=== PATIENT | female | born 1985 | race Caucasian/White ===

== ENCOUNTER → 2020-05-24 | Outpatient (CLI) | payer OTHER ==
[~2020-05-24] MED LIST: COVID-19 VACC, MRNA(MODERNA)/PF 100 MCG/0.5 ML VIAL IM ONE
== END ==
LOC: VACCPMC 13:40
DX: Z23 Encounter for immunization (principal); Z20.828 Contact with and (suspected) exposure to other viral communicable diseases

== ENCOUNTER → 2020-06-28 | Outpatient (CLI) | payer OTHER | END | DRG 951 | LOC: VACCPMC 08:24 | DX: Z23 Encounter for immunization (principal); Z20.822 Contact with and (suspected) exposure to COVID-19 | CPT/HCPCS: 0012A; 91301 ==

== ENCOUNTER 2024-01-24 14:00 | Outpatient (RCR) | payer BC | END 2024-01-25 | LOC: PT 14:00 | PROVIDERS: ATTEND Orthopaedic Surgery | DX: M54.40 Lumbago with sciatica, unspecified side (principal); M47.812 Spondylosis without myelopathy or radiculopathy, cervical region ==

== ENCOUNTER 2024-02-04 14:00 | Outpatient (RCR) | payer BC | END 2024-02-24 | LOC: PT 14:00 | PROVIDERS: ATTEND Orthopaedic Surgery | DX: M54.40 Lumbago with sciatica, unspecified side (principal); M47.812 Spondylosis without myelopathy or radiculopathy, cervical region ==